=== PATIENT | female | born 1990 | race Caucasian/White ===

== ENCOUNTER 2018-01-11 17:39 | Emergency (ER) | payer BC, OTHER ==
[2018-01-11] MEDS ORDERED: NA CHLORIDE 0.9% 1,000 ML ONE (18:52)
[2018-01-11 19:44] LABS: Urine Amorphous Sediment TRACE /HPF (NONE SEEN); Urine Bacteria <20 /HPF (<20); Urine Culture Reflex Order NOT NEEDED; Urine Mucus 3+ /HPF (NONE SEEN)
[2018-01-11 19:45] LABS: Urine Blood 2+ (NEG); Urine Glucose NEGATIVE (NEG); Urine Protein TRACE (NEG); Urine Specific Gravity >1.030 (1.005-1.030)
[2018-01-11] MEDS ORDERED: ONDANSETRON 4 MG/2 ML VIAL ONE (20:18)
[2018-01-11] MEDS ORDERED: MORPHINE 4 MG/ML SYR ONE (20:18)
[2018-01-11 20:22] LABS: Albumin 4.3 g/dL (3.4-5.0); Bilirubin Direct 0.1 mg/dL (0-0.2); Bilirubin Total 0.3 mg/dL (0.2-1.0); Potassium 3.8 mmol/L (3.5-5.1); Protein, Total 9.4 g/dL (6.4-8.2)
[2018-01-11 20:25] LABS: Absolute Lymphocytes (CBC) 2.7 K/uL (0.7-4.9); Absolute Monocytes 0.9 K/uL (0.1-1.3); Absolute Neutrophil 10.2 K/uL (1.8-8.0); Basophils % 0.4 % (0-1.3); Eosinophils % 0.4 % (0-4.4); Hematocrit 44.6 % (36.0-45.0); Lymphocytes % 19.2 % (15.3-44.8); MCH 31.2 pg (27.0-35.0); MCV 92.8 fL (80-100); MPV 8.4 fL (7.6-11.3); Monocytes % 6.3 % (3.3-12.3); RBC Red Blood Cell Count 4.81 M/uL (3.86-4.86)
[2018-01-11] MEDS ORDERED: LORazepam 2 MG/ML VIAL ONE (21:15)
--- NOTE | 2018-01-11 21:40 | RAD REPORT ---
EXAM DESCRIPTION: CTAbdomen Pelvis W Contrast - 01/11/2018 9:31 pm CLINICAL HISTORY: Abdominal pain. ABD PAIN COMPARISON: CT ABD PELVIS W CONTRAST dated 07/05/2015; CT ABD PELVIS W CONTRAST dated 08/12/2014 TECHNIQUE: Biphasic CT imaging of the abdomen and pelvis was performed with 100 ml non-ionic IV cont rast. All CT scans are performed using dose optimization technique as appropriate and may include automated exposure control or mA/KV adjustment according to patient size. FINDINGS: The lung bases are clear.Cholecystectomy clips. The liver, spleen, pancreas, adrenal glands and kidneys are within normal limits. No bowel obstruction, free air, free fluid or abscess. The appendix is normal. No evidence of signi ficant lymphadenopathy. No suspicious bony findings. IMPRESSION: No acute intra-abdominal or pelvic finding.
--- NOTE | 2018-01-11 21:52 | EDPHYS ---
Physician Documentation [facility] Name: Mera Corbin Age: 27 yrs Sex: Female : 1990 Arrival Date: 01/11/2018 Time: 17:42 Bed 28 Private MD: George Fowler E ED Physician Boo Barajas HPI: 01/11 19:00 This 27 yrs old Female presents to ER via Ambulatory with complaints of pm1 Abdominal Pain, Nausea/Vomiting. 19:00 The patient presents with abdominal pain in the upper abdomen. Onset: The pm1 symptoms/episode began/occurred today. The symptoms do not radiate. Associated signs and symptoms: Pertinent positives: nausea and vomiting, Pertinent negatives: chest pain, dysuria, fever, shortness of breath. The symptoms are described as achy. Modifying factors: The symptoms are alleviated by nothing, the symptoms are aggravated by nothing. The patient has experienced similar episodes in the past, multiple times, and the symptoms today are exactly the same, Patient with this abdominal pain for many years that occurs every 6-8 weeks. REGISTERED MIDWIFE: 17:54 LMP 01/11/2018 Historical: - Allergies: 17:54 Demerol; ch - Home Meds: 17:54 Focalin XR 40 mg oral BP50 1 cap once daily [Active]; Cymbalta 60 mg oral cpDR 1 cap ch once daily [Active]; gabapentin 300 mg oral cap 1 cap 3 times per day [Active]; Focalin XR 30 mg oral BP50 1 cap once daily [Active]; Seroquel 50 mg Oral tab 1 tab daily [Active]; lithium carbonate 300 mg Oral cap 1 cap daily [Active]; melatonin 3 mg Oral tab [Active]; control [Active]; Midrin Oral as needed [Active]; Restoril 15 mg Oral cap 1 cap once daily [Active]; laren FE control [Active]; clindamycin gel for face [Active]; tramadol 50 mg Oral tab 1 tab as needed [Active]; - PMHx: 17:54 Fibromyalgia; R bundle branch block with tachycardia when having fibromyalgia flare up; 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 - Social history:: Smoking status: Patient/guardian denies using tobacco, Patient uses alcohol, occasionally. Patient/guardian denies using street drugs. - Ebola Screening: : Patient negative for fever greater than or equal to 101.5 degrees Fahrenheit, and additional compatible Ebola Virus Disease symptoms Patient denies exposure to infectious person Patient denies travel to an Ebola-affected area in the 21 days before illness onset No symptoms or risks identified at this time. ROS: 19:00 Constitutional: Negative for fever, chills, and weight loss, Eyes: Negative for injury, pm1 pain, redness, and discharge, ENT: Negative for injury, pain, and discharge, Neck: Negative for injury, pain, and swelling, Cardiovascular: Negative for chest pain, palpitations, and edema, Respiratory: Negative for shortness of breath, cough, wheezing, and pleuritic chest pain. 19:00 Back: Negative for injury and pain, : Negative for injury, bleeding, discharge, and swelling, MS/Extremity: Negative for injury and deformity, Skin: Negative for injury, rash, and discoloration, Neuro: Negative for headache, weakness, numbness, tingling, and seizure. 19:00 Abdomen/GI: Positive for abdominal pain, nausea and vomiting, Negative for diarrhea. Exam: 19:00 Constitutional: This is a well developed, well nourished patient who is awake, alert, pm1 and in no acute distress. Head/Face: Normocephalic, atraumatic. Eyes: Pupils equal round and reactive to light, extra-ocular motions intact. Lids and lashes normal. Conjunctiva and sclera are non-icteric and not injected. Cornea within normal limits. Periorbital areas with no swelling, redness, or edema. ENT: Nares patent. No nasal discharge, no septal abnormalities noted. Tympanic membranes are normal and external auditory canals are clear. Oropharynx with no redness, swelling, or masses, exudates, or evidence of obstruction, uvula midline. Mucous membranes moist. Neck: Trachea midline, no thyromegaly or masses palpated, and no cervical lymphadenopathy. Supple, full range of motion without nuchal rigidity, or vertebral point tenderness. No Meningismus. Chest/axilla: Normal chest wall appearance and motion. Nontender with no deformity. No lesions are appreciated. Cardiovascular: Regular rate and rhythm with a normal S1 and S2. No gallops, murmurs, or rubs. Normal PMI, no JVD. No pulse deficits. Respiratory: Lungs have equal breath sounds bilaterally, clear to auscultation and percussion. No rales, rhonchi or wheezes noted. No increased work of breathing, no retractions or nasal flaring. 19:00 Back: No spinal tenderness. No costovertebral tenderness. Full range of motion. Skin: Warm, dry with normal turgor. Normal color with no rashes, no lesions, and no evidence of cellulitis. MS/ Extremity: Pulses equal, no cyanosis. Neurovascular intact. Full, normal range of motion. 19:00 Abdomen/GI: Inspection: abdomen appears normal, Bowel sounds: normal, Palpation: soft, mild abdominal tenderness, in the right upper quadrant and left upper quadrant. 19:00 Neuro: Orientation: is normal, Motor: is normal, moves all fours, strength is 5/5 in all extremities. Vital Signs: 17:54 BP 110 / 84; Pulse 110; Resp 22; Temp 98.8; Pulse Ox 100% on R/A; Weight 90.72 kg; ch Height 5 ft. 1 in. (154.94 cm); Pain 5/10; 19:05 BP 108 / 68; Pulse 104; Pulse Ox 100% on R/A; rv 20:50 BP 109 / 94; Pulse 85; Pulse Ox 99% on R/A; rv 23:30 BP 108 / 87; Pulse 82; Resp 16; Temp 98.6(O); Pulse Ox 100% on R/A; Pain 2/10; bs1 17:54 Body Mass Index 37.79 (90.72 kg, 154.94 cm) MDM: 18:23 Patient medically screened. pm1 21:48 Data reviewed: vital signs. Data interpreted: Pulse oximetry: on room air is 99 %. pm1 Interpretation: normal. Counseling: I had a detailed discussion with the patient and/or guardian regarding: the historical points, exam findings, and any diagnostic results supporting the discharge/admit diagnosis, lab results, radiology results, the need for outpatient follow up, to return to the emergency department if symptoms worsen or persist or if there are any questions or concerns that arise at home. 01/11 18:30 Order name: Basic Metabolic Panel; Complete Time: 20:40 pm1 01/11 18:30 Order name: CBC with Diff; Complete Time: 20:40 pm1 01/11 18:30 Order name: Creatinine for Radiology; Complete Time: 20:12 pm1 01/11 18:30 Order name: Hepatic Function; Complete Time: 20:40 pm1 01/11 18:30 Order name: Lipase; Complete Time: 20:40 pm1 01/11 18:30 Order name: Urine Microscopic Only; Complete Time: 20:12 pm1 01/11 18:30 Order name: Urine Dipstick--Ancillary (enter results); Complete Time: 20:12 bd 01/11 18:30 Order name: Urine --Ancillary (enter results); Complete Time: 20:12 bd 01/11 20:39 Order name: CT Abd/Pelvis - W/Contrast: IV contrast only; Complete Time: 21:45 pm1 01/11 18:30 Order name: Urine Test (obtain specimen); Complete Time: 18:35 pm1 01/11 18:30 Order name: IV Saline Lock; Complete Time: 18:35 pm1 01/11 18:30 Order name: Labs collected and sent; Complete Time: 20:49 pm1 01/11 18:30 Order name: Urine Dipstick-Ancillary (obtain specimen); Complete Time: 20:49 pm1 Administered Medications: 18:35 Drug: NS 0.9% 1000 ml Route: IV; Rate: 1000 ml; Site: left hand; rv 23:38 Follow up: IV Status: Completed infusion bs1 20:19 Drug: morphine 4 mg Route: IVP; Site: left hand; rv 20:29 Follow up: Response: No adverse reaction rv 20:19 Drug: Zofran 4 mg Route: IVP; Site: left hand; rv 20:29 Follow up: Response: No adverse reaction rv 21:25 Drug: Ativan 0.5 mg Route: IVP; Site: left hand; rv 23:38 Follow up: Response: No adverse reaction bs1 22:30 Drug: NS 0.9% 1000 ml Route: IV; Rate: 1000 ml; Site: left hand; rv 23:37 Follow up: IV Status: Completed infusion bs1 22:30 Drug: Phenergan 25 mg Route: IVP; Site: left hand; rv 23:37 Follow up: Response: No adverse reaction bs1 Disposition: 01/12 06:27 Co-signature as Attending Physician, Boo Barajas MD I agree with the assessment and horacio plan of care. Disposition: 01/11/18 21:51 Discharged to Home. Impression: Unspecified abdominal pain. - Condition is Stable. - Discharge Instructions: Abdominal Pain, Adult, Nausea and Vomiting, Adult. - Prescriptions for Zofran 4 mg Oral Tablet - take 1 tablet by ORAL route every 12 hours As needed; 20 tablet. Tramadol 50 mg Oral Tablet - take 1 tablet by ORAL route every 8 hours as needed; 12 tablet. - Medication Reconciliation Form, Thank You Letter, Antibiotic Education, Prescription Opioid Use form. - Follow up: Emergency Department; When: As needed; Reason: Worsening of condition. Follow up: George Fowler MD; When: 2 - 3 days; Reason: Recheck today's complaints, Continuance of care, Re-evaluation by your physician. - Problem is new. - Symptoms have improved. Signatures: Dispatcher [employer] EDMS Viviane Mendenhall, Boo Hernandez RN, ch, MD MD cha Marinas, Patrick, POWER OPERATOR POWER OPERATOR pm1 Cherelle España, RN RN bs1 Vel Aldrich, RN RN rv Corrections: (The following items were deleted from the chart) 01/11 23:39 21:51 01/11/2018 21:51 Discharged to Home. Impression: Unspecified abdominal pain. bs1 Condition is Stable. Forms are Medication Reconciliation Form, Thank You Letter, Antibiotic Education, Prescription Opioid Use. Follow up: Emergency Department; When: As needed; Reason: Worsening of condition. Follow up: George Fowler; When: 2 - 3 days; Reason: Recheck today's complaints, Continuance of care, Re-evaluation by your physician. Problem is new. Symptoms have improved. pm1 01/12 02:53 01/11 19:00 Abdomen/GI: Positive for abdominal pain, Negative for nausea, vomiting, and pm1 diarrhea, pm1
--- NOTE | 2018-01-11 21:52 | ER ---
Nurse's Notes [facility] Name: Mera Corbin Age: 27 yrs Sex: Female : 1990 Arrival Date: 01/11/2018 Time: 17:42 Bed 28 Private MD: George Fowler E Diagnosis: Unspecified abdominal pain Presentation: 01/11 17:48 Presenting complaint: Patient states: since Thursday night, feeling cold and clammy, ch abdominal pain, lower back pain, on my period. vomiting. temp at home was 96 degrees and she was feeling chills. Transition of care: patient was not received from another setting of care. Onset of symptoms was January 09, 2018. Risk Assessment: Do you want to hurt yourself or someone else? Patient reports no desire to harm self or others. Initial Sepsis Screen: Does the patient meet any 2 criteria? No. Patient's initial sepsis screen is negative. Does the patient have a suspected source of infection? No. Patient's initial sepsis screen is negative. Care prior to arrival: None. 17:48 Method Of Arrival: Ambulatory 17:48 Acuity: DAYANNA 3 ch Triage Assessment: 17:54 General: Appears in no apparent distress. comfortable, Behavior is calm, cooperative, ch appropriate for age. Pain: Complains of pain in low back area and abdomen Pain currently is 5 out of 10 on a pain scale. GEAR NICKER: 17:54 LMP 01/11/2018 Historical: - Allergies: 17:54 Demerol; ch - Home Meds: 17:54 Focalin XR 40 mg oral BP50 1 cap once daily [Active]; Cymbalta 60 mg oral cpDR 1 cap ch once daily [Active]; gabapentin 300 mg oral cap 1 cap 3 times per day [Active]; Focalin XR 30 mg oral BP50 1 cap once daily [Active]; Seroquel 50 mg Oral tab 1 tab daily [Active]; lithium carbonate 300 mg Oral cap 1 cap daily [Active]; melatonin 3 mg Oral tab [Active]; control [Active]; Midrin Oral as needed [Active]; Restoril 15 mg Oral cap 1 cap once daily [Active]; laren FE control [Active]; clindamycin gel for face [Active]; tramadol 50 mg Oral tab 1 tab as needed [Active]; - PMHx: 17:54 Fibromyalgia; R bundle branch block with tachycardia when having fibromyalgia flare up; 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 - Social history:: Smoking status: Patient/guardian denies using tobacco, Patient uses alcohol, occasionally. Patient/guardian denies using street drugs. - Ebola Screening: : Patient negative for fever greater than or equal to 101.5 degrees Fahrenheit, and additional compatible Ebola Virus Disease symptoms Patient denies exposure to infectious person Patient denies travel to an Ebola-affected area in the 21 days before illness onset No symptoms or risks identified at this time. Screenin:20 Abuse screen: Denies threats or abuse. Denies injuries from another. Nutritional rv screening: No deficits noted. Tuberculosis screening: No symptoms or risk factors identified. Fall Risk None identified. Assessment: 18:19 General: Appears in no apparent distress. comfortable, Behavior is calm, cooperative. rv Pain: Complains of pain in abdomen. Neuro: Level of Consciousness is awake, alert, obeys commands, Oriented to person, place, time, situation. Cardiovascular: Reports. Respiratory: Reports. GI: Bowel sounds present X 4 quads. Abd is soft and non tender X 4 quads. : No signs and/or symptoms were reported regarding the genitourinary system. EENT: No signs and/or symptoms were reported regarding the EENT system. Derm: Skin is intact. 23:05 Reassessment: Patient appears in no apparent distress at this time. Patient and/or bs1 family updated on plan of care and expected duration. Pain level reassessed. Patient is alert, oriented x 3, equal unlabored respirations, skin warm/dry/pink. Report received from ENA Crowder. Pending IV fluids to finish. Discharge instructions given to patient by Vel. Vital Signs: 17:54 BP 110 / 84; Pulse 110; Resp 22; Temp 98.8; Pulse Ox 100% on R/A; Weight 90.72 kg; ch Height 5 ft. 1 in. (154.94 cm); Pain 5/10; 19:05 BP 108 / 68; Pulse 104; Pulse Ox 100% on R/A; rv 20:50 BP 109 / 94; Pulse 85; Pulse Ox 99% on R/A; rv 23:30 BP 108 / 87; Pulse 82; Resp 16; Temp 98.6(O); Pulse Ox 100% on R/A; Pain 2/10; bs1 17:54 Body Mass Index 37.79 (90.72 kg, 154.94 cm) ED Course: 17:42 Patient arrived in ED. sb2 17:42 George Fowler MD is Private Physician. sb2 17:49 Triage completed. ch 17:54 Arm band placed on left wrist. Patient placed in waiting room. ch 18:20 Patient has correct armband on for positive identification. Placed in gown. Bed in low rv position. Call light in reach. Side rails up X 1. Adult w/ patient. Pulse ox on. NIBP on. 18:23 Donnie Wilson NP is PHCP. pm1 18:23 Boo Barajas MD is Attending Physician. pm1 18:35 Urine collected: clean catch specimen, clear, karolyn colored. jp3 20:[address] vm2 21:31 CT Abd/Pelvis - W/Contrast: IV contrast only In Process Unspecified. EDMS 21:51 George Fowler MD is Referral Physician. pm1 23:35 Cherelle España, ENA is Primary Nurse. bs1 23:38 No provider procedures requiring assistance completed. IV discontinued, bleeding bs1 controlled, No redness/swelling at site. Pressure dressing applied. Administered Medications: 18:35 Drug: NS 0.9% 1000 ml Route: IV; Rate: 1000 ml; Site: left hand; rv 23:38 Follow up: IV Status: Completed infusion bs1 20:19 Drug: morphine 4 mg Route: IVP; Site: left hand; rv 20:29 Follow up: Response: No adverse reaction rv 20:19 Drug: Zofran 4 mg Route: IVP; Site: left hand; rv 20:29 Follow up: Response: No adverse reaction rv 21:25 Drug: Ativan 0.5 mg Route: IVP; Site: left hand; rv 23:38 Follow up: Response: No adverse reaction bs1 22:30 Drug: NS 0.9% 1000 ml Route: IV; Rate: 1000 ml; Site: left hand; rv 23:37 Follow up: IV Status: Completed infusion bs1 22:30 Drug: Phenergan 25 mg Route: IVP; Site: left hand; rv 23:37 Follow up: Response: No adverse reaction bs1 Outcome: 21:51 Discharge ordered by MD. pm1 23:38 Discharged to home ambulatory, with family. bs1 23:38 Condition: stable 23:38 Discharge instructions given to patient, Instructed on discharge instructions, follow up and referral plans. Demonstrated understanding of instructions, follow-up care. 23:39 Patient left the ED. bs1 Signatures: Dispatcher [employer] EDMS Viviane Mendenhall, RN RN Donnie Wilson, JULEE DRAWING IN MACHINE TENDER pm1 Libia Encinas vm2 Cherelle España RN RN bs1 Melissa Huynh sb2 Vel Aldrich, RN RN rv Indra Mcleod jp3
[2018-01-11] MEDS ORDERED: PROMETHAZINE 25 MG/ML VIAL ONE (22:13)
[2018-01-11 23:47] VITALS: BP 108/87; TEMP 98.6; O2SAT 100
== END 2018-01-11 23:39 | disposition home or self-care (01) ==
LOC: ER 17:39
DX: R10.10 Upper abdominal pain, unspecified (principal); F90.9 Attention-deficit hyperactivity disorder, unspecified type; J45.909 Unspecified asthma, uncomplicated; Z88.5 Allergy status to narcotic agent
CPT/HCPCS: 36415; 74177; 80048; 80076; 81003; 81015; 81025; 83690; 85025; 96361; 96374; 96375; 99284; J2405; J2550; J7030; Q9967